=== PATIENT | female | born 1965 | race Hispanic/Latino ===

== ENCOUNTER 2021-04-30 19:11 | Observation (INO) | payer BC, SELFPAY ==
[2021-04-30 20:05] LABS: Protime INR 1.02
[2021-04-30 20:06] LABS: Basophils % 0.7 % (0-1.3); Hematocrit 43.9 % (36.0-45.0); Lymphocytes % 16.9 % (15.3-44.8); MPV 9.3 fL (7.6-11.3); RBC Red Blood Cell Count 5.22 M/uL (3.86-4.86)
--- NOTE | 2021-04-30 20:19 | RAD REPORT ---
EXAM DESCRIPTION: Sejal Single View04/30/2021 8:12 pm CLINICAL HISTORY: Chest pain COMPARISON: none FINDINGS: The lungs appear clear of acute infiltrate. The heart is normal size IMPRESSION: No acute abnormalities displayed
[2021-04-30 20:32] LABS: ALT/SGPT 33 U/L (12-78); AST/SGOT 13 U/L (15-37); Albumin 3.7 g/dL (3.4-5.0); Alkaline Phosphatase 103 U/L (45-117); BUN Blood Urea Nitrogen 21 mg/dL (7-18); Bicarbonate 27 mmol/L (21-32); Bilirubin Direct < 0.1 mg/dL (0-0.2); Bilirubin Total 0.4 mg/dL (0.2-1.0); Glucose Level 177 mg/dL (74-106); NT PRO-BNP 100 pg/mL (<125); Potassium 3.8 mmol/L (3.5-5.1); Protein, Total 7.8 g/dL (6.4-8.2); Sodium Level 141 mmol/L (136-145); Troponin (Emerg Dept Use Only) < 0.02 ng/mL (0.0-0.045)
--- NOTE | 2021-04-30 21:28 | EDPHYS ---
Physician Documentation [facility] Name: Joceline Abdi Age: 55 yrs Sex: Female : 1965 Arrival Date: 04/30/2021 Time: 19:14 Bed 27 Private MD: ED Physician Samy Nicolas HPI: 04/30 19:51 This 55 yrs old Female presents to ER via Ambulatory with complaints of Chest tw4 Pain. 19:51 The patient or guardian reports chest pain that is located primarily in the anterior tw4 chest wall. The patient or guardian reports chest pain that is located primarily in the anterior chest wall, right. Onset: today. Associated signs and symptoms: Pertinent positives: shortness of breath. The chest pain is described as dull, a heaviness. Duration: The patient or guardian reports a single episode. Modifying factors: The symptoms are alleviated by nothing. the symptoms are aggravated by nothing. The patient has not experienced similar symptoms in the past. 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 - Social history:: Smoking status: Patient denies any tobacco usage or history of. Patient/guardian denies using alcohol, street drugs. ROS: 19:51 Constitutional: Negative for fever, chills, and weight loss, Eyes: Negative for injury, tw4 pain, redness, and discharge, Neck: Negative for injury, pain, and swelling, Abdomen/GI: Negative for abdominal pain, nausea, vomiting, diarrhea, and constipation, Back: Negative for injury and pain. 19:51 MS/Extremity: Negative for injury and deformity, Skin: Negative for injury, rash, and discoloration, Neuro: Negative for headache, weakness, numbness, tingling, and seizure. 19:51 Cardiovascular: Positive for chest pain, Negative for edema, orthopnea, palpitations, paroxysmal nocturnal dyspnea, acute changes. 19:51 Respiratory: Positive for shortness of breath. Exam: 19:55 Constitutional: This is a well developed, well nourished patient who is awake, alert, tw4 and in no acute distress. Head/Face: Normocephalic, atraumatic. Chest/axilla: Normal chest wall appearance and motion. Nontender with no deformity. No lesions are appreciated. Cardiovascular: Regular rate and rhythm with a normal S1 and S2. No gallops, murmurs, or rubs. Normal PMI, no JVD. No pulse deficits. Respiratory: Lungs have equal breath sounds bilaterally, clear to auscultation and percussion. No rales, rhonchi or wheezes noted. No increased work of breathing, no retractions or nasal flaring. Abdomen/GI: Soft, non-tender, with normal bowel sounds. No distension or tympany. No guarding or rebound. No evidence of tenderness throughout. Back: No spinal tenderness. No costovertebral tenderness. Full range of motion. Skin: Warm, dry with normal turgor. Normal color with no rashes, no lesions, and no evidence of cellulitis. MS/ Extremity: Pulses equal, no cyanosis. Neurovascular intact. Full, normal range of motion. Neuro: Awake and alert, GCS 15, oriented to person, place, time, and situation. Cranial nerves II-XII grossly intact. Motor strength 5/5 in all extremities. Sensory grossly intact. Cerebellar exam normal. Normal gait. Vital Signs: 19:35 BP 194 / 91; Pulse 69; Resp 16 S; Temp 98.2(O); Pulse Ox 100% on R/A; Weight 77.11 kg bb (R); Height 5 ft. 1 in. (154.94 cm) (R); Pain 5/10; 20:00 BP 179 / 80; Pulse 68; Resp 16; Pulse Ox 100% on R/A; zb 20:35 BP 178 / 93; Pulse 77; Resp 16; Pulse Ox 100% on R/A; zb 22:15 BP 186 / 92; Pulse 61; Resp 16; Pulse Ox 99% on R/A; zb 22:18 BP 214 / 94; Pulse 99; Resp 18; Pulse Ox 99% on R/A; zb 22:31 BP 166 / 84; Pulse 82; Resp 16; Pulse Ox 98% on R/A; zb 19:35 Body Mass Index 32.12 (77.11 kg, 154.94 cm) bb MDM: 21:27 Patient medically screened. tw4 21:29 Differential diagnosis: acute myocardial infarction, acute pericarditis, pulmonary tw4 embolus. HEART Score: History: Moderately Suspicious (1), ECG: Non specific repolarization disturbance / LBTB / PM (1), Age: > 45 and < 65 years (1), Risk Factors: > or = 3 Risk factors for atherosclerotic disease (2), Troponin: < or = 1 x Normal Limit (0), Total Score = 5. The patient was given aspirin in the Emergency Department. Data reviewed: vital signs, nurses notes. Data reviewed: lab test result(s), cardiac enzymes, CBC, electrolytes, hepatic panel, EKG, radiologic studies, plain films. Data interpreted: Pulse oximetry: Interpretation: normal. Test interpretation: by ED physician or midlevel provider: ECG, plain radiologic studies. Physician consultation: Camron Blackwell regarding admission, to the telemetry unit. patient's condition, and will see patient in inpatient room. 04/30 19:32 Order name: Basic Metabolic Panel 04/30 19:32 Order name: CBC with Diff; Complete Time: 21:28 04/30 19:32 Order name: LFT's; Complete Time: 21:28 04/30 19:32 Order name: Magnesium; Complete Time: 21:28 04/30 19:32 Order name: NT PRO-BNP; Complete Time: 21:28 04/30 21:28 Interpretation: Within normal limits: NT PRO-BNP 100. 04/30 19:32 Order name: PT-INR; Complete Time: 21:28 04/30 21:28 Interpretation: Within normal limits: PT 11.7. 04/30 19:32 Order name: Troponin (emerg Dept Use Only); Complete Time: 21:28 04/30 21:28 Interpretation: Within normal limits: TROPED < 0.02. 04/30 19:32 Order name: XRAY Chest (1 view); Complete Time: 21:28 04/30 19:33 Order name: Basic Metabolic Panel; Complete Time: 21:28 EDID 04/30 21:56 Order name: COVID-19 : Document "Date of Symptom Onset" if Symptomatic. bb 04/30 21:57 Order name: CORONAVIRUS EDID 04/30 23:20 Order name: SARS-COV-2 RT PCR EDID 04/30 19:32 Order name: EKG; Complete Time: 19:33 tw4 04/30 19:32 Order name: Cardiac monitoring; Complete Time: 19:57 tw4 04/30 19:32 Order name: EKG - Nurse/Tech; Complete Time: 19:57 tw4 04/30 19:32 Order name: IV Saline Lock; Complete Time: 19:57 tw4 04/30 19:32 Order name: Labs collected and sent; Complete Time: 19:57 tw4 04/30 19:32 Order name: O2 Per Protocol; Complete Time: 19:56 tw4 04/30 19:32 Order name: O2 Sat Monitoring; Complete Time: 19:56 tw4 04/30 21:58 Order name: CONS Physician Consult EDID EC:28 Rate is 66 beats/min. Rhythm is regular. QRS [place] is Normal. [place] interval is normal. QRS tw4 interval is normal. QT interval is normal. No Q waves. T waves are Flattened in lead III. Clinical impression: NSR w/ Non-specific ST/T Changes. Interpreted by me. Reviewed by me. Administered Medications: 22:22 Drug: Nitroglycerin 0.4 mg Route: Sublingual; zb 22:33 Follow up: Response: No adverse reaction; Marked relief of symptoms; Pain is decreased zb 22:22 Drug: hydrALAZINE 10 mg Route: IVP; Site: right antecubital; zb 22:33 Follow up: Response: No adverse reaction; Blood pressure is lowered zb Disposition: 04/30/21 21:27 Hospitalization ordered by Camron Blackwell for Observation. Preliminary diagnosis is Angina pectoris, unspecified. - Bed requested for Telemetry/MedSurg (observation). - Status is Observation. zb - Condition is Stable. - Problem is new. - Symptoms have improved. Signatures: Dispatcher [employer] [facility] Emili Ramirez RN RN mw Ballard, Brenda, RN RN bb Wadley, Terrence, MD MD tw4 Sierra Ramsey RN RN zb Osorio Carrasco PA PA ej Corrections: (The following items were deleted from the chart) 19:55 19:51 The pain does not radiate. tw4 tw4 22: 21:27 Hospitalization Ordered by Camron Blackwell for Observation. Preliminary diagnosis mw is Angina pectoris, unspecified. Bed requested for Telemetry/MedSurg (observation). Status is Observation. Condition is Stable. Problem is new. Symptoms have improved. tw4 23:25 22:07 04/30/2021 21:27 Hospitalization Ordered by Camron Blackwell for Observation. mw Preliminary diagnosis is Angina pectoris, unspecified. Bed requested for Intensive Care Unit. Status is Observation. Condition is Stable. Problem is new. Symptoms have improved. mw 05/01 00:05 [id number] 23:25 04/30/2021 21:27 Hospitalization Ordered by Camron Blackwell for Observation. zb Preliminary diagnosis is Angina pectoris, unspecified. Bed requested for Telemetry/MedSurg (observation). Status is Observation. Condition is Stable. Problem is new. Symptoms have improved. mw
--- NOTE | 2021-04-30 21:28 | ER ---
Nurse's Notes [facility] Name: Joceline Abdi Age: 55 yrs Sex: Female : 1965 Arrival Date: 04/30/2021 Time: 19:14 Bed 27 Private MD: Diagnosis: Angina pectoris, unspecified Presentation: 04/30 19:30 Chief complaint: Patient states: she is having chest pain for several months but it bb worsened tonight around 1700. Coronavirus screen: At this time, the client does not indicate any symptoms associated with coronavirus-19. Ebola Screen: No symptoms or risks identified at this time. 19:30 Method Of Arrival: Ambulatory bb 19:35 Initial Sepsis Screen: Does the patient meet any 2 criteria? No. Patient's initial bb sepsis screen is negative. Does the patient have a suspected source of infection? No. Patient's initial sepsis screen is negative. Risk Assessment: Do you want to hurt yourself or someone else? Patient reports no desire to harm self or others. Onset of symptoms was April 30, 2021. 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 - Social history:: Smoking status: Patient denies any tobacco usage or history of. Patient/guardian denies using alcohol, street drugs. Screenin:00 Abuse screen: Denies threats or abuse. Denies injuries from another. Nutritional zb screening: No deficits noted. Tuberculosis screening: No symptoms or risk factors identified. Fall Risk None identified. Assessment: 19:50 General: Appears in no apparent distress. uncomfortable, Behavior is calm, cooperative, zb appropriate for age. Pain: Complains of pain in base of the skull and chest Pain radiates to neck Pain currently is 2 out of 10 on a pain scale. Quality of pain is described as pressure, Pain began 3 hours ago. Neuro: Level of Consciousness is awake, alert, obeys commands, Oriented to person, place, time, situation. Cardiovascular: Heart tones S1 S2 present Patient's skin is warm and dry. Pulses are all present. Rhythm is regular Chest pain is described as mild, quality is pressure, is located in right chest wall substernal area radiates to right neck episodes are intermittent. Respiratory: Airway is patent Respiratory effort is even, unlabored, Respiratory pattern is regular, symmetrical. GI: Abdomen is flat. :. Derm: Skin is intact, is healthy with good turgor, Skin is dry, Skin is normal, Skin temperature is warm. Musculoskeletal: Circulation, motion, and sensation intact. Range of motion: intact in all extremities. 20:35 Reassessment: Patient appears in no apparent distress at this time. Patient and/or zb family updated on plan of care and expected duration. Pain level reassessed. Patient is alert, oriented x 3, equal unlabored respirations, skin warm/dry/pink. family remains at bedside. Vital Signs: 19:35 BP 194 / 91; Pulse 69; Resp 16 S; Temp 98.2(O); Pulse Ox 100% on R/A; Weight 77.11 kg bb (R); Height 5 ft. 1 in. (154.94 cm) (R); Pain 5/10; 20:00 BP 179 / 80; Pulse 68; Resp 16; Pulse Ox 100% on R/A; zb 20:35 BP 178 / 93; Pulse 77; Resp 16; Pulse Ox 100% on R/A; zb 22:15 BP 186 / 92; Pulse 61; Resp 16; Pulse Ox 99% on R/A; zb 22:18 BP 214 / 94; Pulse 99; Resp 18; Pulse Ox 99% on R/A; zb 22:31 BP 166 / 84; Pulse 82; Resp 16; Pulse Ox 98% on R/A; zb 19:35 Body Mass Index 32.12 (77.11 kg, 154.94 cm) bb ED Course: 19:14 Patient arrived in ED. es 19:30 Arm band placed on Patient placed in an exam room, on a stretcher, on air sampling and monitoring, bb on pulse oximetry. EKG completed in triage. Results shown to MD. 19:32 Samy Nicolas MD is Attending Physician. tw4 19:45 Triage completed. bb 19:45 Initial lab(s) drawn, by me, sent to lab. EKG done, by ED staff, reviewed by Samy Nicolas MD. Inserted saline lock: 20 gauge 24 gauge antecubital area, using aseptic technique. Blood collected. 19:56 Sierra Ramsey, RN is Primary Nurse. zb 20:00 Patient has correct armband on for positive identification. Placed in gown. Bed in low zb position. Call light in reach. electronic device monitor on. Pulse ox on. NIBP on. Door closed. Noise minimized. 20:01 Patient maintains SpO2 saturation greater than 95% on room air. zb 20:12 XRAY Chest (1 view) In Process Unspecified. EDMS 21:27 Camron Blackwell is Hospitalizing Provider. tw4 05/01 00:04 No provider procedures requiring assistance completed. Patient admitted, IV remains in zb place. Administered Medications: 04/30 22:22 Drug: Nitroglycerin 0.4 mg Route: Sublingual; zb 22:33 Follow up: Response: No adverse reaction; Marked relief of symptoms; Pain is decreased zb 22:22 Drug: hydrALAZINE 10 mg Route: IVP; Site: right antecubital; zb 22:33 Follow up: Response: No adverse reaction; Blood pressure is lowered zb Outcome: 21:27 Decision to Hospitalize by Provider. tw4 05/01 00:05 Admitted to Med/surg accompanied by tech, family with patient, room 402, with chart, zb Report called to Alexa Holman Condition: stable Instructed on the need for admit. 00:05 Patient left the ED. zb Signatures: Dispatcher [employer] [facility] Danielle Blakely Brenda RN RN Samy Stewart MD MD tw4 Sierra Ramsey RN RN zb
[2021-04-30] MEDS ORDERED: NITROGLYCERIN 0.4 MG/TAB SL ONE (22:36)
[2021-04-30] MEDS ORDERED: HYDRALAZINE HCL 20 MG/ML VIAL ONE (22:36)
[2021-05-01] MEDS ORDERED: ONDANSETRON 4 MG/2 ML VIAL IV PRN (00:08)
[2021-05-01] MEDS ORDERED: HYDRALAZINE HCL 20 MG/ML VIAL IV PRN (00:08)
[2021-05-01] MEDS ORDERED: MORPHINE 2 MG/ML SYR IV PRN (00:08)
[2021-05-01] MEDS ORDERED: ACETAMINOPHEN 500 MG TAB PO PRN (00:08)
[2021-05-01] MEDS ORDERED: NITROGLYCERIN 0.4 MG/TAB SL PRN (00:08)
--- NOTE | 2021-05-01 01:12 | P.HP ---
Certification for Inpatient Patient admitted to: Observation With expected LOS: <2 Midnights Patient will require the following post-hospital care: None Practitioner: I am a practitioner with admitting privileges, knowledge of patient current condition, hospital course, and medical plan of care. Services: Services provided to patient in accordance with Admission requirements found in Title 42 Section 412.3 of the Code of Federal Regulations Patient History Date of Service: 05/01/21 Reason for admission: chest pain History of Present Illness: Ms. Abdi is a 55 yo F with HTN, DM, TIA 2018, and HLD here today with R sided chest pain radiating to her jaw, neck, and head. She describes it as 9/10 pinching pain lasting for 30 minutes or less. The pain has been occurring for the past 2 months. She says she initially thought it was shoulder pain because pain onset happens when she tries to lift heavy object. She says she has no relief with aspirin or tylenol. Denies nausea, vomiting, lightheadedness. Reports diaphoresis. Family history of heart disease. Allergies No Known Allergies Allergy (Unverified 05/01/21 00:07) - Past Medical/Surgical History Diabetic: Yes -: HTN -: DM -: TIA 2018 -: HLD -: C Section -: axilla surgery - Family History Mother -: Heart disease, Hypertension, Diabetes Notes: Parkinson's, dementia, CABG with stent Father -: Heart disease, Hypertension, Diabetes Brother -: Heart disease, Diabetes Notes: of [place] Sister -: Heart disease, Diabetes Notes: of [place] - Social History Smoking Status: Never smoker Alcohol use: No CD- Drugs: No Caffeine use: Yes Place of Residence: Home Review of Systems 10-point ROS is otherwise unremarkable Cardiovascular: Chest Pain Physical Examination - Vital Signs Temperature: 97.1 F Blood Pressure: 147/69 Pulse: 70 Respirations: 17 Pulse Ox (%): 96 - Physical Exam General: Alert, In no apparent distress HEENT: Atraumatic, PERRLA, Mucous membr. moist/pink, EOMI, Sclerae nonicteric Neck: Supple, 2+ carotid pulse no bruit, No LAD, Without JVD or thyroid abnormality Respiratory: Clear to auscultation bilaterally, Normal air movement Cardiovascular: Regular rate/rhythm, Normal S1 S2 Gastrointestinal: Normal bowel sounds, No tenderness Musculoskeletal: No tenderness Integumentary: No rashes Neurological: Normal gait, Normal speech, Normal strength at 5/5 x4 extr, Normal tone, Normal affect Lymphatics: No axilla or inguinal lymphadenopathy - Studies Laboratory Data (last 24 hrs) 04/30/21 19:47: PT 11.7, INR 1.02 04/30/21 19:47: WBC 11.60 H, Hgb 14.6, Hct 43.9, Plt Count 398 04/30/21 19:47: Sodium 141, Potassium 3.8, BUN 21 H, Creatinine 0.77, Glucose 177 H, Magnesium 2.0, Total Bilirubin 0.4, AST 13 L, ALT 33, Alkaline Phosphatase 103 Assessment and Plan - Problems (Diagnosis) (1) HTN (hypertension) Current Visit: Yes Status: Chronic Qualifiers: Hypertension type: essential hypertension Qualified Code(s): I10 - Essential (primary) hypertension (2) T2DM (type 2 diabetes mellitus) Current Visit: Yes Status: Chronic Qualifiers: Diabetes mellitus long wall mining machine tender insulin use: without fpc use Diabetes mellitus complication status: without complication Qualified Code(s): E11.9 - Type 2 diabetes mellitus without complications (3) TIA (transient ischemic attack) Current Visit: Yes Status: Chronic (4) HLD (hyperlipidemia) Current Visit: Yes Status: Acute Qualifiers: Hyperlipidemia type: unspecified Qualified Code(s): E78.5 - Hyperlipidemia, unspecified (5) Chest pain Current Visit: Yes Status: Acute Qualifiers: Chest pain type: unspecified Qualified Code(s): R07.9 - Chest pain, unspecified - Plan cardiology consulted trend troponins and EKG daily ASA, BB, statin lipid and thyroid panel pending PRN morphine and nitro DVT ppx A1c pending hydralazine for BP spikes stress test in the AM - Advance Directives Does patient have a Living Will: No Does patient have a Durable POA for Healthcare: No
[2021-05-01 01:54] VITALS: BMI 32.3
[2021-05-01 04:07] LABS: Basophils % 0.7 % (0-1.3); Hematocrit 42.5 % (36.0-45.0); Lymphocytes % 18.7 % (15.3-44.8); MPV 9.2 fL (7.6-11.3)
[2021-05-01 04:58] LABS: ALT/SGPT 29 U/L (12-78); AST/SGOT 12 U/L (15-37); Albumin 3.4 g/dL (3.4-5.0); Alkaline Phosphatase 88 U/L (45-117); BUN Blood Urea Nitrogen 15 mg/dL (7-18); Bicarbonate 27 mmol/L (21-32); Bilirubin Total 0.5 mg/dL (0.2-1.0); Glucose Level 151 mg/dL (74-106); HDL Cholesterol 65 mg/dL (40-60); LDL Cholesterol, Calculated 67 (<130); Phosphorus 3.4 mg/dL (2.5-4.9); Potassium 3.7 mmol/L (3.5-5.1); Protein, Total 7.2 g/dL (6.4-8.2); Sodium Level 142 mmol/L (136-145)
[2021-05-01] MEDS ORDERED: METOPROLOL TAR 25 MG TAB PO SCH (06:00)
[2021-05-01] MEDS: INSULIN -REGULAR HUMAN 50 UNIT/0.5 ML ML SQ SCH ×2 (07:30→11:30)
[2021-05-01 08:56] VITALS: O2SAT 95
[2021-05-01] MEDS ORDERED: REGADENOSON 0.4 MG/5 ML SYR IV ONE (08:56)
[2021-05-01] MEDS ORDERED: lisinopriL 20 MG TAB PO SCH (09:00)
[2021-05-01] MEDS ORDERED: ASPIRIN EC 81 MG TAB PO SCH (09:00)
[2021-05-01] MEDS ORDERED: POTASSIUM CL SA 10 MEQ TAB PO ONE ×2 (09:00)
[2021-05-01] MEDS ORDERED: hydroCHLOROthiazide 12.5 MG CAP PO SCH (09:00)
[2021-05-01] MEDS ORDERED: Linagliptin [Tradjenta] 5 MG Tablet PO SCH (09:00)
[2021-05-01] MEDS ORDERED: ENOXAPARIN 40 MG/0.4 ML SQ SCH (09:00)
[2021-05-01 12:26] VITALS: TEMP 97.5
--- NOTE | 2021-05-01 12:42 | CON ---
Date of Consultation: 05/01/2021 Reason For Consultation: Atypical chest pain. History Of Present Illness: Ms. Abdi is 55. Was admitted with right shoulder chest pain that is worse on movement without any nausea, vomiting, diaphoresis, PND, orthopnea, pedal edema, palpitatio n, or syncope. Her pain is not exertional. Her pain gets worse when she moves her right arm. It do es not radiate and has been going on for 3 days. Her EKG is normal. Chest x-ray is normal. BNP is normal. Troponin is normal. Past Medical History: Positive for hypertension, diabetes, and dyslipidemia. Allergies: NONE. Review of Systems: Negative. Social History: Negative. Family History: Positive for diabetes. Medications: At home include aspirin, Lipitor, Tradjenta, lisinopril with hydrochlorothiazide, and m etformin. Physical Examination: Vital Signs: Stable, afebrile. HEENT: Negative. Neck: Supple with no bruit. Chest: Clear to auscultation and percussion. Cardiac: Revealed a regular rhythm and rate. No murmurs, gallops, or rubs. Abdomen: Benign. Extremities: Revealed no clubbing, cyanosis, or edema. Diagnostic Data: Diagnostic data that were available were all normal. Impression And Plan: Atypical chest pain, most likely musculoskeletal. Echocardiogram and Lexiscan have been ordered already by Dr. Blackwell. We will see what those show before making any further decis ions. Rest of her problems including hypertension, diabetes, and dyslipidemia are all very well cont rolled. NB/MODL Voice ID: [id number] Report ID: [id number]
--- NOTE | 2021-05-01 12:50 | RAD REPORT ---
EXAM DESCRIPTION: NM - Rest Stress Cardiac Imaging - 05/01/2021 12:44 pm CLINICAL HISTORY: ACS Chest pain. COMPARISON: No comparisons TECHNIQUE: The patient was administered approximately 10mCi of Tc 99m Sestamibi prior to resting SPE CT imaging of the heart. The patient was then administered approximately 30 mCi of Tc 99m Sestamibi f ollowing exercise or pharmacologic stress. Multiplanar SPECT images were reviewed. FINDINGS: No stress induced ischemic defect is seen to suggest stress induced ischemia. No fixed def ect is seen to suggest hibernating myocardium or scarred myocardium. The end diastolic volume is 50 ml, the end systolic volume is 14 ml, and the ejection fraction is 72 %. IMPRESSION: No stress induced ischemia.
[2021-05-01 14:15] VITALS: BP 150/86
--- NOTE | 2021-05-01 15:12 | P.DS ---
Admission Date: 04/30/21 Discharge Date: 05/01/21 Disposition: ROUTINE DISCHARGE Discharge Condition: FAIR Reason for Admission: chest pain Consultations: Cardiology-Dr. Kraft. - Problems (1) Chest pain Current Visit: Yes Status: Acute Qualifiers: Chest pain type: unspecified Qualified Code(s): R07.9 - Chest pain, unspecified (2) HLD (hyperlipidemia) Current Visit: Yes Status: Acute Qualifiers: Hyperlipidemia type: unspecified Qualified Code(s): E78.5 - Hyperlipidemia, unspecified (3) HTN (hypertension) Current Visit: Yes Status: Chronic Qualifiers: Hypertension type: essential hypertension Qualified Code(s): I10 - Essential (primary) hypertension (4) T2DM (type 2 diabetes mellitus) Current Visit: Yes Status: Chronic Qualifiers: Diabetes mellitus [facility] insulin use: without superintendent [employer] use Diabetes mellitus complication status: without complication Qualified Code(s): E11.9 - Type 2 diabetes mellitus without complications Brief History of Present Illness: 55-year-old woman with a history of hypertension, diabetes, TIAs and hyperlipidemia presented to the emergency department with a complaint of right- sided chest pain radiating to her jaw and neck and head. Patient reports the pain has been occurring for about 2 months. Her initial troponin in the ED negative. EKG unremarkable, chest x-ray unremarkable. Patient was placed under observation for ACS rule out. Hospital Course: Patient placed under observation on the medical floor. Troponin trended negative. Patient seen by cardiology. Nuclear stress test performed which did not show any stress-induced ischemic. ACS has been ruled out. Her pain is noncardiac and likely related to shoulder pain. Patient deemed stable for discharge. He is on aspirin and Lipitor which are continued on discharge. Vital Signs/Physical Exam: Temp Pulse Resp BP Pulse Ox 97.5 F 84 18 150/86 H 95 05/01/21 12:00 05/01/21 14:15 05/01/21 12:00 05/01/21 14:15 05/01/21 12:00 General: Alert, In no apparent distress, Oriented x3 HEENT: Mucous membr. moist/pink Neck: JVD not distended Respiratory: Clear to auscultation bilaterally, Normal air movement Cardiovascular: No edema, Regular rate/rhythm, Normal S1 S2 Gastrointestinal: Soft and benign, Non-distended, No tenderness Musculoskeletal: No swelling Integumentary: No rashes Neurological: Normal speech, Normal strength at 5/5 x4 extr Laboratory Data at Discharge: WBC 10.80 K/uL (4.3-10.9) 05/01/21 03:31 Hgb 14.5 g/dL (12.0-15.0) 05/01/21 03:31 Hct 42.5 % (36.0-45.0) 05/01/21 03:31 Plt Count 374 K/uL (152-406) 05/01/21 03:31 PT 11.7 SECONDS (9.5-12.5) 04/30/21 19:47 INR 1.02 04/30/21 19:47 Sodium 142 mmol/L (136-145) 05/01/21 03:31 Potassium 3.7 mmol/L (3.5-5.1) 05/01/21 03:31 BUN 15 mg/dL (7-18) 05/01/21 03:31 Creatinine 0.59 mg/dL (0.55-1.3) 05/01/21 03:31 Glucose 151 mg/dL (74-106) H 05/01/21 03:31 Phosphorus 3.4 mg/dL (2.5-4.9) 05/01/21 03:31 Magnesium 2.0 mg/dL (1.8-2.4) 05/01/21 03:31 Total Bilirubin 0.5 mg/dL (0.2-1.0) 05/01/21 03:31 AST 12 U/L (15-37) L 05/01/21 03:31 ALT 29 U/L (12-78) 05/01/21 03:31 Alkaline Phosphatase 88 U/L (45-117) 05/01/21 03:31 Troponin I < 0.02 ng/mL (0.0-0.045) 05/01/21 03:31 Triglycerides 131 mg/dL (<150) 05/01/21 03:31 Cholesterol 158 mg/dL (<200) 05/01/21 03:31 HDL Cholesterol 65 mg/dL (40-60) H 05/01/21 03:31 Cholesterol/HDL Ratio 2.43 05/01/21 03:31 Home Medications: Aspirin [Lo-Dose Aspirin EC] 81 mg PO DAILY 05/01/21 Atorvastatin Calcium 40 mg PO DAILY 05/01/21 Linagliptin [Tradjenta] 5 mg PO DAILY 05/01/21 Lisinopril/Hydrochlorothiazide [Lisinopril-Hctz 20-12.5 mg Tab] 1 tab PO DAILY 05/01/21 Metformin HCl 1,000 mg PO BID 05/01/21 Diet: ADA Activity: Ad kadeem Followup: SHANTEL FUNES [Primary Care Provider] - 1-2 Weeks
[2021-05-01] MEDS ORDERED: ATORVASTATIN 40 MG TAB PO SCH (21:00)
--- NOTE | 2021-05-02 08:23 | ECHO ---
HEIGHT: 5 ft 1 in WEIGHT: 171 lb 4.8 oz DATE OF STUDY: 05/01/[address]: Vasile Kraft MD 2-DIMENSIONAL: YES M.MODE: YES DOPPLER: YES COLOR FLOW: YES TDS: NO PORTABLE: NO DEFINITY: NO BUBBLE STUDY: NO DIAGNOSIS: CHEST PAIN CARDIAC HISTORY: CATHERIZATION: NO SURGERY: NO PROSTHETIC VALVE: NO PACEMAKER: NO MEASUREMENTS (cm) DIASTOLIC (NORMALS) SYSTOLIC (NORMALS) IVSd 1.0 (0.6-1.2) LA Diam 2.8 (1.9-4.0) LVEF 62% LVIDd 2.4 (3.5-5.7) LVIDs 1.6 (2.0-3.5) %FS 32% LVPWd 1.1 (0.6-1.2) Ao Diam 2.2 (2.0-3.7) 2 DIMENSIONAL ASSESSMENT: RIGHT ATRIUM: NORMAL LEFT ATRIUM: NORMAL RIGHT VENTRICLE: NORMAL LEFT VENTRICLE: NORMAL TRICUSPID VALVE: NORMAL MITRAL VALVE: NORMAL PULMONIC VALVE: NORMAL AORTIC VALVE: NORMAL PERICARDIAL EFFUSION: NONE AORTIC ROOT: NORMAL LEFT VENTRICULAR WALL MOTION: NORMAL DOPPLER/COLOR FLOW: MILD TRICUSPID REGURGITATION. COMMENTS: NORMAL LEFT VENTRICULAR EJECTION FRACTION 60-65%. NORMAL WALL MOTION. MODERATE DIASTOLIC DYSFUNCTION. TECHNOLOGIST: Felicita FREGOSO
--- NOTE | 2021-05-02 08:29 | TREADPHA ---
DX: CHEST PAIN Date of Study: 05/01/2021 Ht: 5' 1 " Wt: 171 lb 4.8 oz Consulting Physician: JOSE MEDICATIONS: NOVOLIN-R, LOVENOX, LIPITOR, PRINIVIL, LOPRESSOR, NITROSTAT, METFORMIN HISTORY: NON INSULIN DEPENDENT DIABETES MELLITUS, HYPERTENSION, POSTIVE FAMILY HISTORY. PHYSICIAL EXAMINATION: RESTING B.P.: [*] RESTING H.R.: [*] RESTING EKG: NORMAL PROTOCOL: LEXISCAN EXERCISE TIME: 3:30 B.P. AT PEAK STRESS: [*] IMPRESSION: LEXISCAN STRESS TEST PERFORMED. CARDIOLITE INJECTED PER PROTOCOL. SEE NUCLEAR MEDICINE REPORT. NO SUPRAVENTRICULAR TACHYCARDIA. NO VENTRICULAR TACHYCARDIA. NO ARRHYTHMIAS NOTED. RESPIRATORY EVEN AND NON LABORED. PATIENT TOLERATED WELL. NO ST OR T CHANGE WITH EXERCISE.
== END 2021-05-01 16:04 | disposition home or self-care (01) ==
LOC: ER 19:11 → ERHOLD 21:57 → 4TH 23:43
PROVIDERS: ADMIT Internal Medicine; ATTEND Internal Medicine
DX: R07.89 Other chest pain (principal); I10 Essential (primary) hypertension; E11.9 Type 2 diabetes mellitus without complications; E78.5 Hyperlipidemia, unspecified; Z78.0 Asymptomatic menopausal state; Z20.822 Contact with and (suspected) exposure to COVID-19; Z79.82 Long term (current) use of aspirin; Z86.73 Personal history of transient ischemic attack (TIA), and cerebral infarction without residual deficits; Z82.49 Family history of ischemic heart disease and other diseases of the circulatory system; Z83.3 Family history of diabetes mellitus
CPT/HCPCS: 93005; 93017; 93306; 85025 ×2; 80048; 36415; 83735 ×2; 84100; 85610; 80061; 82947 ×2; 80076; 84443; 83036; 84484 ×3; 84439; 80053; 83880; 71045; 94760 ×2; 78452; 96374; 99285; U0003; J0360; J1650; J2785; A9500; G0378 ×2